=== PATIENT | male | born 1960 | race Caucasian/White ===

== ENCOUNTER 2016-09-22 23:59 | Emergency (ER) | payer MEDICARE ==
[2016-09-23 00:08] VITALS: BP 128/83; PULSE 81; RESP 20; TEMP 97.7; O2SAT 97
[2016-09-23] MEDS ORDERED: BP MED (00:09)
[2016-09-23] MEDS ORDERED: METHY10 PO (00:09)
[2016-09-23 04:39] VITALS: BP 132/79; PULSE 89; RESP 20; O2SAT 97
--- NOTE | 2016-09-23 04:40 | PD ---
HPI Chief Complaint: Alcohol/Drug Intoxication Time Seen by Provider: 04:31 Travel History International Travel<30 days: No Contact w/Intl Traveler<30days: No Traveled to known affect area: No History of Present Illness HPI This is a 56-year-old male who presents to the emergency department intoxicated. He was found by the [facility] security staff passed out on their property. Patient doesn't remember how he got here. He was surprised to hear he is in [place]. He says he is from [place]. He says he drinks a lot. He denies any pain anywhere. PFSH Past Medical History Hypertension: Yes Medical other: Yes (NARCOLEPSY PER PT) Past Surgical History Abdominal Surgery: Yes (PT STATES MULTIPLE ABDOMINAL SURGERIES, BUT IS UNABLE TO SAY WHAT THEY ARE.) Social History Alcohol Use: Yes (DAILY) Tobacco Use: No Substance Use: No Allergies-Medications (Allergen,Severity, Reaction): Coded Allergies: Minew (Verified Allergy, Severe, Swelling, 09/23/16) Reported Meds & Prescriptions Reported Meds & Active Scripts Active Reported [Bp Med] Ritalin IR (Methylphenidate HCl) 10 Mg Tab 10 Mg PO DAILY Review of Systems ROS Limitations: Intoxication Physical Exam Narrative GENERAL: Disheveled, no acute distress SKIN: Warm and dry. HEAD: Atraumatic. Normocephalic. EYES: Pupils equal and round. No injection or drainage. ENT: Moist mucous membranes NECK: Trachea midline. CARDIOVASCULAR: Regular rate and rhythm. No murmur appreciated. RESPIRATORY: Clear to auscultation. Breath sounds equal bilaterally. GASTROINTESTINAL: Abdomen soft, non-tender, nondistended. MUSCULOSKELETAL: No obvious deformities. NEUROLOGICAL: Awake and alert. No obvious cranial nerve deficits. Moving all extremities. PSYCHIATRIC: Appropriate mood and affect; insight and judgment normal. Data Data Last Documented VS Vital Signs Date Time Temp Pulse Resp B/P Pulse Ox O2 Delivery O2 Flow Rate FiO2 09/23/16 00:08 97.7 81 20 128/83 97 MDM Medical Decision Making Medical Screen Exam Complete: Yes Emergency Medical Condition: Yes Interpretation(s) Afebrile, no tachycardia, normotensive Differential Diagnosis Acute alcohol intoxication, closed head injury Narrative Course This is a 56-year-old male who presents to the emergency department with acute alcohol intoxication. He was found asleep in public. He appears intoxicated but has no physical exam evidence of traumatic injury. I don't think any labs or diagnostics are warranted. I think patient can be discharged when clinically sober. Diagnosis Primary Impression: Acute alcohol intoxication Qualified Code: F10.120 - Acute alcohol intoxication, uncomplicated Patient Instructions: General Instructions Additional Instructions: Follow up with Tammy Begum in regards to psychiatric or substance related issues at: [address] [place], [place] [id number] Med/Other Pt SpecificInfo: No Change to Meds Disposition: 01 DISCHARGE HOME Condition: Stable Alise Vyas MD Sep 23, 2016 04:40
== END 2016-09-23 08:23 | disposition home or self-care (01) ==
LOC: NEPC 23:59 → NEPA 09-23 08:23
DX: F10.120 Alcohol abuse with intoxication, uncomplicated (principal); I10 Essential (primary) hypertension; Z86.69 Personal history of other diseases of the nervous system and sense organs
CPT/HCPCS: 99284